=== PATIENT | male | born 1965 | race Caucasian/White ===

== ENCOUNTER → 2020-07-29 09:02 | Outpatient (CLI) | payer OTHER, SELFPAY ==
[2020-07-29 11:34] LABS: COVID19 -Nasal RAPID Negative (Negative)
== END ==
PROVIDERS: PCP Family Medicine; Visit Provider Surgery
DX: Z20.822 Contact with and (suspected) exposure to COVID-19 (principal)
CPT/HCPCS: 87635; C9803

== ENCOUNTER 2020-07-30 06:15 | Day surgery (SDC) | payer OTHER, SELFPAY ==
[2020-07-30] VITALS (7 sets, daily range): BP systolic 100–115; BP diastolic 68–76; PULSE 50–65; RESP 10–18; TEMP 36.2–36.7; O2SAT 97–99; BMI 23.6
--- NOTE | 2020-07-30 | PATH_ITS ---
[facility] Accession Number: [id number] . 01 Material submitted: . PART A: duodenum - DUODENUM BIOPSY PART B: gastrointestinal site - STOMACH BIOPSY PART C: esophagus - DISTAL ESOPHAGUS PART D: esophagus - MID ESOPHAGUS PART E: colon - 40 CM COLON POLYP X3 PART F: colon - 30 CM COLON POLYP . 02 Diagnosis: A. Duodenum, Biopsy: Duodenal mucosa with no diagnostic abnormality. Negative for active inflammation, features of sprue, dysplasia, or malignancy. . B. Stomach, Biopsy: Antral and body-type mucosa with mild chronic gastritis. Negative for Helicobacter by immunohistochemistry. Negative for intestinal metaplasia. Negative for dysplasia and malignancy. . C. Distal Esophagus, Biopsies: Squamocolumnar junctional mucosa with specialized intestinal metaplasia, consistent with Kapoor's esophagus. Up to 26 intraepithelial eosinophils per high-power field. Negative for dysplasia and malignancy. . D. Mid Esophagus, Biopsies: Squamous epithelium with increased intraepithelial eosinophils (greater than 50 per high-power field). Please see comment. Negative for dysplasia and malignancy. . E. Colon, Polyps x3, 40 cm, Biopsies: Tubular adenoma, two fragments. . F. Colon, 30 cm Polyp, Biopsy: Tubular adenoma. [facility] 08/05/2020 1414 Local . 02 Comment: C-D. In the proper clinical setting, the histopathologic appearance would support a clinical impression of eosinophilic esophagitis. The differential diagnosis includes drug reaction, gastroesophageal reflux, and food allergies. . . 02 Electronically signed: . Jocelyn Garza MD, Pathologist NPI- [id number] . 01 Gross description: . Part A: DUODENUM BIOPSY: Received in formalin are 2 fragment(s) of hyatt, soft tissue measuring 0.3 x 0.3 x 0.2 cm to 0.3 x 0.2 x 0.2 cm submitted entirely in 1 cassette(s) Part B: STOMACH BIOPSY: Received in formalin are 3 fragment(s) of hyatt, soft tissue measuring 0.5 x 0.2 x 0.1 cm to 0.2 x 0.1 x 0.1 cm submitted entirely in 1 cassette(s) Part C: DISTAL ESOPHAGUS: Received in formalin are 2 fragment(s) of hyatt, soft tissue measuring 0.5 x 0.3 x 0.2 cm to 0.3 x 0.2 x 0.2 cm submitted entirely in 1 cassette(s) Part D: MID ESOPHAGUS: Received in formalin are 2 fragment(s) of hyatt, soft tissue measuring 0.3 x 0.2 x 0.2 cm to 0.2 x 0.2 x 0.1 cm submitted entirely in 1 cassette(s) Part E: 40 CM COLON POLYP X3: Received in formalin are 2 fragment(s) of hyatt, soft tissue measuring 0.6 x 0.5 x 0.3 cm to 0.2 x 0.2 x 0.2 cm submitted entirely in 1 cassette(s) Part F: 30 CM COLON POLYP: Received in formalin are 3 fragment(s) of hyatt, soft tissue measuring 0.5 x 0.4 x 0.3 cm to 0.2 x 0.2 x 0.1 cm submitted entirely in 1 cassette(s) /IZZY 07/31/2020 0512 Local . 02 Microscopic: . A. An immunohistochemical stain was performed to evaluate cells of interest for neuroendocrine differentiation. The synaptophysin immunohistochemical stain was negative in the cells of interest, consistent with no evidence of an neuroendocrine cell proliferation. The control stain showed appropriate reactivity. . B. A Helicobacter immunohistochemical stain was performed to evaluate for Helicobacter organisms and is negative. The control stain showed appropriate reactivity. . * This test was developed and its performance characteristics determined by [facility]. It has not been cleared or approved by the U.S. Food and Drug Administration. The FDA has determined that such clearance or approval is not necessary. This test is used for clinical purposes. It should not be regarded as investigational or for research. . 02 Pathologist provided ICD-10: K20.0, D12.6 . 02 CPT . 292506, 929590, 108097, 847483, 614140, 645886, [id number] Performed at: 01 [facility] [address] [place] [address], [place], [place] [id number] MD Fidel Jacome MD Phone: [phone] Performed at: [address] [facility] [id number] [place], [place] [id number] MD Jocelyn Garza MD Phone: [phone]
[2020-07-30] MEDS: SODIUM CHLORIDE 0.9% 1,000 ML 200 ML IV (07:11)
--- NOTE | 2020-07-30 07:36 | PM.PREOP ---
Pre-operative Note COVID-19 COVID-19 status: Negative Result date/Date tested (Pos, Neg/Pending): 07/29/20 Interval Note History & Physical reviewed/Exam performed by Physician: Yes Changes to H&P: No ASA Class (for procedural sedation): II
[2020-07-30] MEDS: LIDOCAINE 4% SOLN 50 ML 20 ML TOP (07:43)
--- NOTE | 2020-07-30 07:43 | PM.OP.ENDO ---
Operative Date/Time/Diagnoses Date of procedure: 07/30/20 Time of procedure: 07:43 Pre-op diagnosis: Dysphagia, rectal bleeding Procedure & Clinicians Study performed: Esophagogastroduodenoscopy Biopsies of duodenum, stomach, distal esophagus, midesophagus Colonoscopy Polypectomy x4 using hot snare and Jumbo forceps Procedural sedation performed by the endoscopist Same procedure as scheduled: Yes Indications: Rectal bleeding, dysphagia Surgeon: Cindy Tubbs Procedure Notes SCOAP/Timeout: Performed Procedure in detail: The patient was brought to the room and placed in left lateral decubitus position with all bony prominences padded. A bite block was positioned in the patient's mouth to protect the lips, teeth, and tongue for the procedure. A time-out was performed and then the patient was given procedural sedation starting with 4 mg of Versed and 100 mcg of fentanyl. Vitals were monitored throughout the procedure and remained stable. Once adequately sedated, the procedure was begun. The lubricated gastroscope was passed through the bite block and across the tongue and into the esophagus without incident. A tubular view of the esophagus was maintained as the scope was advanced through the esophagus and into the stomach. The scope was advanced through the stomach and to the pylorus. The scope was gently popped through the pylorus and into the duodenal bulb. The scope was flexed and advanced into the second and third portions of the duodenum. The duodenum and duodenal bulb revealed some petechia, but otherwise normal. Biopsies were taken. The scope was withdrawn into the stomach. The stomach revealed some endoscopic gastritis, but no active ulcers or active bleeding. Biopsies were taken. The scope was retroflexed and the gastric cardia was examined. There was a Hill grade 2-3 hiatal hernia, with some Kimber-Anderson tears likely from retching last night while taking the bowel prep (as reported by the patient). The scope was then straightened, and withdrawn into the esophagus. The Z-line appeared normal other than the Kimber-Anderson tears. Biopsies were taken. The distal esophagus contained some superficial white slough which was biopsied. Mid esophagus had some abnormal texture, consistent with possible eosinophilic esophagitis. Biopsies were taken of the mid esophagus. The scope was then withdrawn through the esophagus with a tubular view. The scope was then withdrawn from the patient and attention was turned to the colonoscopy portion of the procedure. A rectal exam was performed revealing no abnormalities. The colonoscope was then introduced to the rectum and advanced to the cecum in the usual fashion. The cecum was identified by the appendiceal orifice, the mucosal tri-fold, and the ileocecal valve. An additional 4 mg of Versed and 50 micro g of fentanyl were given during the colonoscopy portion of the procedure. The scope was then retracted while rotating side to side and examining each mucosal fold. Three polyps were found at 40 cm. One was removed with hot snare, and 2 were removed with Jumbo forceps. An additional polyp was found at 30 cm, and was removed with hot snare. Polyps were retrieved and sent for pathology. Diverticulosis was seen in throughout the colon, most prominently in the descending and sigmoid colon. At the conclusion of the procedure retroflexion was performed and small grade 1-2 internal hemorrhoids without stigmata of bleeding were seen. The scope was then withdrawn from the rectum the procedure was concluded. The patient tolerated the procedure well and was transferred to the PACU in stable condition. A total of 8 mg of Versed and 150 micro g of fentanyl were given for the entire procedure. Findings: diverticulosis, gastritis, hiatal hernia and polyp Specimen(s): other (Biopsies of duodenum, stomach, distal esophagus, mid esophagus. Polyps x4) Complications: none Impression: Dysphagia may be secondary to esophagitis. Final determination will be based on biopsy results and barium esophagram which has been ordered and is pending to be completed. Diverticulosis, and multiple polyps which all appear to be precancerous/benign. Post-procedure Recommendations: Colonscopy in 5 years (Due to multiple polyps found on today's exam), High fiber diet (Fiber supplement) and Other recommendation (Further recommendations pending biopsy results) Follow up: as needed Disposition: PACU
[2020-07-30] MEDS: MIDAZOLAM 5 MG/5 ML VIAL IV (08:03)
[2020-07-30] MEDS: fentaNYL 250 MCG/5 ML INJ IV (08:03)
== END 2020-07-30 10:33 | disposition home or self-care (01) ==
LOC: ENDO 07-31 11:19
PROVIDERS: PCP Family Medicine; Referring Provider Surgery; Visit Provider Surgery
PROC: 0DJ08ZZ Inspection of Upper Intestinal Tract, Via Natural or Artificial Opening Endoscopic (ICD-10-PCS; CPT 43235; principal; 2020-07-30 07:45)
PROC: 0DJD8ZZ Inspection of Lower Intestinal Tract, Via Natural or Artificial Opening Endoscopic (ICD-10-PCS; CPT 45378; 2020-07-30 07:45)
DX: K62.5 Hemorrhage of anus and rectum (principal); D12.6 Benign neoplasm of colon, unspecified; K64.0 First degree hemorrhoids; R13.10 Dysphagia, unspecified; K22.70 Barrett's esophagus without dysplasia; K44.9 Diaphragmatic hernia without obstruction or gangrene; K29.50 Unspecified chronic gastritis without bleeding
CPT/HCPCS: 45385; 45380; 43239; J2250; J3010

== ENCOUNTER → 2022-07-15 13:00 | Outpatient (CLI) | payer OTHER, SELFPAY ==
--- NOTE | 2022-07-15 | DI.RAD.S_ITS ---
PROCEDURE: XR CERVICAL SPINE 2V OR 3V INDICATIONS: NECK PAIN TECHNIQUE: 3 view(s) of the cervical spine were acquired. COMPARISON: None. FINDINGS: Bones: No fractures or dislocations to the C7 level. The lateral masses of C1 appear intact on the odontoid view. No suspicious bony lesions. Moderate degenerative disc disease at C5-C6, C6-C7 and C7-T1. Mild facet arthropathy scattered in cervical spine. Soft tissues: No prevertebral soft tissue swelling. IMPRESSION: 1. Moderate degenerative disc disease in the lower cervical spine. Dictated by: Matthew Maldonado M.D. on 07/15/2022 at 13:40 Approved by: Matthew Maldonado M.D. on 07/15/2022 at 13:41
--- NOTE | 2022-07-15 | DI.RAD.S_ITS ---
PROCEDURE: XR SHOULDER LT MIN 2V INDICATIONS: SHOULDER PAIN TECHNIQUE: 3 views of the shoulder were acquired. COMPARISON: None. FINDINGS: Bones: No fractures or dislocations. No suspicious bony lesions. Mild acromioclavicular and glenohumeral joint degeneration. Visualized ribs appear intact. Soft tissues: No suspicious soft tissue calcifications. IMPRESSION: Mild osteoarthritis. Dictated by: Matthew Maldonado M.D. on 07/15/2022 at 13:41 Approved by: Matthew Maldonado M.D. on 07/15/2022 at 13:42
== END ==
PROVIDERS: PCP Family Medicine; Referring Provider Registered Nurse; Visit Provider Registered Nurse
DX: M50.322 Other cervical disc degeneration at C5-C6 level (principal); S13.4XXA Sprain of ligaments of cervical spine, initial encounter; M25.512 Pain in left shoulder; M19.012 Primary osteoarthritis, left shoulder; X58.XXXA Exposure to other specified factors, initial encounter
CPT/HCPCS: 72040; 73030

== ENCOUNTER 2024-05-09 18:40 | Emergency (ER) | payer OTHER, SELFPAY ==
[2024-05-09 18:56] VITALS: BP 105/58; PULSE 71; RESP 13; TEMP 36.7; O2SAT 95; BMI 27.3
--- NOTE | 2024-05-09 18:59 | DI.RAD.S_ITS ---
PROCEDURE: XR TIBIA FIBULA LT 2V INDICATIONS: lower leg injury TECHNIQUE: 2 views of the tibia and fibula were acquired. COMPARISON: None. FINDINGS: Bones: No fractures or dislocations. No suspicious bony lesions. Soft tissues: No suspicious soft tissue calcifications or masses. IMPRESSION: No acute bony abnormality. Dictated by: Jean Pierre Chao M.D. on 05/09/2024 at 20:09 Approved by: Jean Pierre Chao M.D. on 05/09/2024 at 20:09
[2024-05-09] MEDS: IBUPROFEN 400 MG TABLET 800 MG PO (22:03)
[2024-05-09 22:12] VITALS: BP 108/58
[2024-05-09 22:13] VITALS: PULSE 48
[2024-05-09 22:30] VITALS: BP 99/63; PULSE 61; O2SAT 97
[2024-05-09 23:00] VITALS: BP 104/60; PULSE 64; O2SAT 97
[2024-05-09 23:30] VITALS: BP 98/58; PULSE 60; O2SAT 97
[2024-05-10] VITALS: BP 109/55; PULSE 64; O2SAT 100
[2024-05-10 00:30] VITALS: BP 113/69; PULSE 71; O2SAT 99
[2024-05-10 01:00] VITALS: BP 106/60; PULSE 64; O2SAT 94
--- NOTE | 2024-05-10 01:01 | ED_ITS ---
HPI - Wound/Laceration General Chief Complaint: Wound/Laceration Stated Complaint: left muse injury Time Seen by Provider: 05/10/24 00:56 Source: patient Mode of arrival: Wheelchair History of Present Illness HPI narrative: 58-year-old gentleman history of psoriasis had a rock hit is left muse mowing the lawn. Patient was wearing jeans, rock did not penetrate the jeans. Patient had that bled immediately. It was very painful to weightbear. That has not really improved. Patient denies other injuries. No new numbness tingling or weakness. Patient tetanus is not up-to-date. states he was on any antidepressant daily. Denies any anticoagulants. No known drug allergies. Related Data Home Medications Medication Instructions Recorded Confirmed venlafaxine 37.5 mg 37.5 mg PO DAILY 07/30/20 07/30/20 capsule,extended release 24 hr Previous Rx's Medication Instructions Recorded amoxicillin 875 mg-potassium 1 tab PO BID #20 tabs 05/10/24 clavulanate 125 mg tablet hydrocodone 5 mg-acetaminophen 325 1 tab PO Q6H PRN pain #7 tabs 05/10/24 mg tablet Allergies Allergy/AdvReac Type Severity Reaction Status Date / Time No Known Drug Allergies Allergy Verified 05/09/24 18:56 Review of Systems Review of Systems ROS Unobtainable: All systems reviewed & are unremarkable except as noted in HPI and below Patient History Surgical History History of ear surgery Family History Mother Cancer Social History marital status: household members: spouse occupational status: employed Smoking Status: Unknown if ever smoked alcohol intake: current substance use type: does not use Smoking Status: Unknown if ever smoked alcohol intake frequency: 0-2 drinks per day Exam Narrative Exam Narrative: GENERAL: Alert and oriented x three, patient was initially sleeping on exam awakens easily. Mild distress HEENT: Head normocephalic, atraumatic, EOMI, pupils reactive, face symmetric, moist mucous membranes NECK: Supple, full range of motion CARDIOVASCULAR: Regular rate and rhythm without murmurs, rubs or gallops. RESPIRATORY: Breath sounds equal bilaterally, no wheezes rales or rhonchi. ABDOMEN: Soft, nontender. Normoactive bowel sounds all 4 quadrants. No guarding or rebound, rigidity, no mass EXTREMITIES: Normal range of motion, no clubbing or edema. Neurovascularly intact, patient has a puncture the left anterior calf there is a small amount of surrounding ecchymosis but no hematoma. Patient does have some overlying patchy she erythematous silvery scaled I changes on the lateral calf which patient and state or his psoriasis. NEUROLOGICAL: Cranial nerves II through XII grossly intact. Moving all extremities SKIN: Warm, dry, no petechiae, no rashes or lesions otherwise noted. Initial Vital Signs Initial Vital Signs: Vital Signs Temperature 98.1 F 05/09/24 18:56 Pulse Rate 71 05/09/24 18:56 Respiratory Rate 13 05/09/24 18:56 Blood Pressure 105/58 L 05/09/24 18:56 Pulse Oximetry 95 05/09/24 18:56 Oxygen Delivery Method Room Air 05/09/24 18:56 Course Orders Ordered: ED Orders 05/09/24 18:59 XR tibia fibula LT 2V Stat Discontinued Medications Hydrocodone Bitart/Acetaminophen (Hydrocodone/Acet 5/325 Prepack) 1 bottle MISC DIRECTED ONE Stop: 05/10/24 01:10 Last Admin: 05/10/24 01:23 Dose: 1 bottle Documented By: ROSY Diphtheria/Tetanus/Acell Pertussis (Tet,Diph,Pertuss(Acell),Vac/Pf 0.5 Ml Syringe) 0.5 ml IM .ONCE ONE Stop: 05/10/24 01:10 Last Admin: 05/10/24 01:23 Dose: 0.5 ml Documented By: ROSY Ibuprofen (Ibuprofen 400 Mg Tablet) 800 mg PO NOW ONE Stop: 05/09/24 21:59 Last Admin: 05/09/24 22:03 Dose: 800 mg Documented By: PAWAN Vital Signs Vital signs: Vital Signs - 8 hr 05/09/24 22:12 05/09/24 22:13 05/09/24 22:30 Pulse Rate 48 L 61 Blood Pressure 108/58 L Pulse Oximetry 97 05/09/24 22:30 05/09/24 23:00 05/09/24 23:00 Pulse Rate 64 Blood Pressure 99/63 104/60 Pulse Oximetry 97 05/09/24 23:30 05/09/24 23:30 05/10/24 00:00 Pulse Rate 60 Blood Pressure 98/58 L 109/55 L Pulse Oximetry 97 05/10/24 00:00 05/10/24 00:30 05/10/24 00:30 Pulse Rate 64 71 Blood Pressure 113/69 Pulse Oximetry 100 99 05/10/24 01:00 05/10/24 01:00 05/10/24 01:30 Pulse Rate 64 69 Blood Pressure 106/60 Pulse Oximetry 94 97 MDM - Wound/Laceration MDM Narrative Medical decision making narrative: Tib-fib x-ray shows no acute change. Tetanus was updated. Patient has puncture wound in his lower extremity does not require repair but was bandaged and plan for wound care at home. Patient can weightbear as tolerated with crutches if he would does not have improvement over the next week patient is to follow up in 7-10 days for repeat imaging. Discharge Plan Departure Patient Disposition: Home Clinical Impression: Puncture wound of left lower extremity Instructions: DI for Puncture Wound Activity Restrictions/Additional Instructions: Follow up for recheck if you are not able to weightbear in the next 7-10 days. You can weightbear as tolerated use crutches as needed. You can take acetaminophen and/or ibuprofen as needed for pain. If inadequate for pain you can take Keenes 1 tablet every 6 hours as needed instead of Tylenol. This medication can make you sleepy do not drive, perform hazardous activities or make any major decisions while taking it. This medication will make you constipated please take a stool softener once to twice daily until stools are soft and regular. Take antibiotics until completed. Prescription sent to [facility] in [place]. Wound Care: Keep wound(s) clean and dry. Wash daily with soap and water only. Do not use over the counter products (alcohol or peroxide)on the wounds unless instructed by a physician. Triple antibiotic ointment If wound condition worsens (increased/expanding redness, developing fluid blisters, or worsening pain), either contact your doctor for an urgent re- assessment , or return to the Emergency Department. Return if fever greater than 100.4 Fahrenheit, increased swelling, increasing pain or worsening symptoms such as increased discharge or spreading redness. Prescriptions: New hydrocodone-acetaminophen 5-325 mg tablet 1 tab PO Q6H PRN (Reason: pain) Qty: 7 0RF amoxicillin-pot clavulanate 875-125 mg tablet 1 tab PO BID Qty: 20 0RF No Action venlafaxine 37.5 mg capsule,extended release 24hr 37.5 mg PO DAILY Referrals: Jimmy Lora MD [Primary Care Provider] - Stand Alone Forms: Patient Portal/API/Survey
[2024-05-10] MEDS: TET,DIPH,PERTUSS(ACELL),VAC/PF 0.5 ML SYRINGE IM (01:23)
[2024-05-10] MEDS: HYDROCODONE/ACET 5/325 PREPACK 1 BOTTLE MISC (01:23)
[2024-05-10 01:30] VITALS: PULSE 69; O2SAT 97
== END 2024-05-10 01:38 | disposition home or self-care (01) ==
PROVIDERS: Emergency Provider Emergency Medicine; PCP Family Medicine
DX: S81.832A Puncture wound without foreign body, left lower leg, initial encounter (principal); W22.8XXA Striking against or struck by other objects, initial encounter; Z23 Encounter for immunization
CPT/HCPCS: 73590; 90471; 99283; 99284; 90715

== ENCOUNTER → 2024-05-30 19:38 | Outpatient (CLI) | payer OTHER, SELFPAY ==
--- NOTE | 2024-05-30 19:41 | DI.MRI.S_ITS ---
PROCEDURE: MR LOWER LEG LT WO/W CON INDICATIONS: non healing wound of LT LE TECHNIQUE: Noncontrast coronal T1 spin echo and STIR, sagittal T1 spin echo with fat saturation and STIR, axial T1 spin echo and T2 fast spin echo with fat saturation. After the administration of contrast, axial/sagittal/coronal T1 spin echo with fat saturation through the left lower leg. COMPARISON: None. FINDINGS: Image quality: Excellent. Bones: Extensive marrow edema and enhancement involving proximal to mid tibial shaft is seen with significant surrounding periosteal reaction. No obvious cortical erosion is seen. No fracture or dislocation. No other area of abnormal marrow signal. Soft tissues: There is significant soft tissue edema and swelling along anterior and medial aspect of left lower leg extending from the level of left knee to left ankle . No discrete peripherally enhancing drainable fluid collection is noted. Soft tissue edema and swelling is also noted surrounding proximal to mid tibial shaft. There is edema involving deep portion of the extensor and flexor muscles adjacent to proximal to mid tibial shaft. Edema is also noted involving anterior medial aspect of proximal soleus muscle. No discrete intramuscular peripherally enhancing fluid collection is seen. No enhancing soft tissue mass is seen. IMPRESSION: 1. Extensive cellulitis along anterior and medial aspect of left lower leg as above, no evidence of discrete drainable abscess collection. 2. Suggestion of osteomyelitis involving left proximal to mid tibial shaft with marrow edema, contrast enhancement and surrounding periosteal reaction. No bony erosion or pathologic fracture. 3. Suggestion of myositis involving muscles immediately adjacent to proximal to mid tibial shaft as above. No intramuscular abscess collection. Dictated by: Robret Golden M.D. on 05/31/2024 at 11:15 Approved by: Robetr Golden M.D. on 05/31/2024 at 11:22
== END ==
PROVIDERS: PCP Family Medicine; Referring Provider Family Medicine; Visit Provider Family Medicine
DX: S81.802A Unspecified open wound, left lower leg, initial encounter (principal); L03.116 Cellulitis of left lower limb; R60.0 Localized edema; M79.605 Pain in left leg
CPT/HCPCS: 73720; A9579

== ENCOUNTER 2024-06-03 11:15 | Inpatient (IN) | payer OTHER, SELFPAY ==
[2024-06-03 11:55] VITALS: BMI 26.2
--- NOTE | 2024-06-03 13:19 | PM.HP.1 ---
History of Present Illness History of Present Illness Date Patient Seen: 06/03/24 Time Patient Seen: 13:19 Date of Onset of Symptoms: 05/07/24 Chief complaint: PIC LINE Narrative: Patient is a 58-year-old male who I know well who presents with left muse osteomyelitis and cellulitis. Patient approximately 3 weeks ago was mowing his lawn got hit by a rock that came out from under in the middle of his muse had immediate pain. Had x-ray which did not show any fracture. Patient had a open wound which has not really healed. He continues to get worsening pain he was started on Bactrim and culture was obtained which was negative for definitive diagnosis. Got no improvement with a full course of Bactrim and then was switched to Augmentin. He really never had any erythema or other changes but increasing pain. MRI was obtained which shows cellulitis basically the entire muse and probable osteomyelitis of the central tibia. Patient has had no fevers no chills no night sweats no other change. Otherwise feeling well [facility] Surgical History History of ear surgery Family History Mother Cancer Social History marital status: household members: spouse occupational status: employed Smoking Status: Never smoker alcohol intake: current substance use type: does not use Meds Home Medications and Allergies Home Medications Medication Instructions Recorded Confirmed Type buspirone 30 mg tablet 30 mg PO BID 06/03/24 06/03/24 History gabapentin 300 mg capsule 300 mg PO 3XD 06/03/24 06/03/24 History hydrocodone 5 mg-acetaminophen 325 1 tab PO Q6H PRN moderate pain 06/03/24 06/03/24 History mg tablet omeprazole 40 mg capsule,delayed 40 mg PO DAILY 06/03/24 06/03/24 History release venlafaxine 75 mg capsule,extended 75 mg PO 3XD 06/03/24 06/03/24 History release 24 hr Allergies Allergy/AdvReac Type Severity Reaction Status Date / Time No Known Drug Allergies Allergy Verified 05/09/24 18:56 Review of Systems Review of Systems Narrative: Negative except above Exam Vital Signs (past 8 hours): Alert male in no acute distress HEENT exam mucous membranes moist neck supple without adenopathy lungs are clear heart is regular rate and rhythm abdomen is soft positive bowel sounds nontender left muse shows an open 4 mm wound with no drainage. He is some slight erythema around that but is quite tender along the entire tibia. There was no swelling no evidence of any abscess or other changes. Good pulses. Right leg is normal neurologic exam is unremarkable Assessment & Plan Assessment & Plan narrative: Cellulitis with probably osteomyelitis mid tibia. Culture previously was negative but will re-culture today. Will get CBC sed rate CRP. Will begin on vanco after discussion with pharmacy. Will consult Wound Care to see what they would recommend with nonhealing wound connected probably to the bone. Will cover for MRSA at this time and will hopefully get some direction with culture. Patient is probably going to need long-term treatment so will add PICC line. If there is any question will discuss with Infectious Disease. Maybe ortho for debridement will see what wound care thinks. Discussed with the patient he understands Problem 2. Depression. Stable. We started his usual meds. 55 minutes spent with the patient imaging review of information discussion with pharmacy dictation orders Time-Based Coding :: [TOTAL MINUTES] spent with patient and on the chart (including review of chart, obtaining history, exam, reviewing outside data, placing orders, documenting exam and treatment plan, and counseling patient) on [DATE]. Quality VTE Deep Vein Thrombosis/Pulmonary Embolism Present on Admission: No
[2024-06-03 13:41] LABS: Estimated Glomerular Filt Rate > 60 mL/min (>60)
[2024-06-03 13:45] LABS: C-Reactive Protein Quant < 0.5 mg/dL (<1.0)
[2024-06-03 14:00] VITALS: BP 111/68; PULSE 60; RESP 15; TEMP 36.4; O2SAT 96
[2024-06-03 14:13] LABS: Add Manual Diff / Slide Review NO; Basophils Absolute Auto 100 /uL (0-100); Basophils Percent Auto 0.9 % (0-2); Eosinophils Absolute Auto 200 /uL (0-450); Eosinophils Percent Auto 3.1 % (2-4); Hematocrit 37.4 % (41-53); Hemoglobin 12.5 g/dL (13.5-17.5); Lymphocytes Absolute Auto 1700 /uL (1100-4500); Lymphocytes Percent Auto 25.5 % (25-40); Mean Corpuscular HGB Conc 33.5 % (30-36); Mean Corpuscular Hemoglobin 31.6 PG (26-34); Mean Corpuscular Volume 94.1 fL (80-100); Monocytes Absolute Auto 500 /uL (0-900); Monocytes Percent Auto 7.4 % (3-14); Neutrophils Absolute Auto 4200 /uL (1500-7000); Neutrophils Percent Auto 63.1 % (50-75); Platelet Count 323 X10^3/uL (150-400); Red Blood Cell Count 3.97 X10^6/uL (4.5-5.9); Red Cell Distribution Width 13.1 % (11.6-14.8); White Blood Cell Count 6.6 X10^3/uL (4.5-11.0)
[2024-06-03 14:31] LABS: Erythrocyte Sedimentation Rate 13 MM/HR (0-15)
[2024-06-03] MEDS: GABAPENTIN 300 MG CAPSULE PO ×2 (15:21→20:57)
[2024-06-03] MEDS: OXYCODONE IR 5 MG TABLET PO ×2 (15:21→21:02)
[2024-06-03] MEDS: VENLAFAXINE ER 75 MG CAP PO ×2 (15:21→20:57)
--- NOTE | 2024-06-03 16:52 | DI.RAD.S_ITS ---
PROCEDURE: XR CHEST FOR PICC 1V INDICATIONS: PICC line placement COMPARISON: None. FINDINGS: PICC was placed by the intravenous therapy team from the left side. Fluoroscopic spot film demonstrates the tip of PICC projecting to the area of SVC. IMPRESSION: Tip of PICC projects to the area of SVC. Dictated by: Robert Golden M.D. on 06/03/2024 at 17:17 Approved by: Robert Golden M.D. on 06/03/2024 at 17:18
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
[2024-06-03] MEDS: VANCOMYCIN 1,250 MG/250 ML PIGGYBACK 250 MG IV (17:28)
[2024-06-03 18:00] VITALS: BP 118/65; PULSE 72; RESP 18; TEMP 36.6; O2SAT 96
[2024-06-03 19:00] VITALS: O2SAT 96
[2024-06-03 20:00] VITALS: BP 123/71; PULSE 68; RESP 17; TEMP 36.6; O2SAT 96
[2024-06-03] MEDS: BUSPIRONE 5 MG TABLET 30 MG PO (20:57)
[2024-06-04] VITALS (8 sets, daily range): BP systolic 110–129; BP diastolic 70–83; PULSE 56–65; RESP 16–21; TEMP 35.9–36.3; O2SAT 95–97
[2024-06-04] MEDS: VANCOMYCIN 1,250 MG/250 ML PIGGYBACK 250 MG IV ×3 (01:46→17:56)
[2024-06-04 05:14] LABS: Add Manual Diff / Slide Review NO; Basophils Absolute Auto 100 /uL (0-100); Basophils Percent Auto 1.4 % (0-2); Eosinophils Absolute Auto 300 /uL (0-450); Eosinophils Percent Auto 5.7 % (2-4); Hematocrit 35.1 % (41-53); Lymphocytes Absolute Auto 2100 /uL (1100-4500); Lymphocytes Percent Auto 48.1 % (25-40); Mean Corpuscular HGB Conc 34.3 % (30-36); Mean Corpuscular Volume 93.3 fL (80-100); Monocytes Absolute Auto 300 /uL (0-900); Monocytes Percent Auto 7.6 % (3-14); Neutrophils Absolute Auto 1700 /uL (1500-7000); Neutrophils Percent Auto 37.2 % (50-75); Platelet Count 277 X10^3/uL (150-400); Red Blood Cell Count 3.76 X10^6/uL (4.5-5.9); Red Cell Distribution Width 12.6 % (11.6-14.8); White Blood Cell Count 4.5 X10^3/uL (4.5-11.0)
[2024-06-04] MEDS: PANTOPRAZOLE DR 40 MG TABLET PO (06:27)
--- NOTE | 2024-06-04 07:57 | P.PN_ITS ---
Subjective Subjective Date Patient Seen: 06/04/24 Time Patient Seen: 07:58 Interval history: Patient seen in follow-up osteomyelitis and cellulitis of the left leg. Patient feeling maybe slightly better today hard to tell. Does not feel a lot different. No fevers no chills no other change. Appreciate wound care. Exam Vital Signs (past 8 hours): - 06/04/24 00:00 06/04/24 04:00 Temperature 97.2 F L 97.2 F L Pulse Rate 56 L 58 L Respiratory Rate 17 17 Blood Pressure 114/79 119/76 Pulse Oximetry 96 96 Oxygen Flow Rate 0 0 Oxygen Delivery Method Room Air Oxygen Flow Rate 0 Narrative Exam Narrative: Alert male in no acute distress lying in bed. Lungs are clear heart is regular rate and rhythm left leg shows maybe some slight decreased erythema certainly less tender inferior to the wound wound shows no difference although it is covered today with wound care dressing. Objective Labs 06/04/24 04:44 06/03/24 13:20 Labs: Laboratory Results - last 24 hr 06/03/24 06/03/24 06/04/24 13:20 13:33 04:44 WBC 6.6 4.5 RBC 3.97 L 3.76 L Hgb 12.5 L 12.0 L Hct 37.4 L 35.1 L MCV 94.1 93.3 MCH 31.6 32.0 MCHC 33.5 34.3 RDW 13.1 12.6 Plt Count 323 277 Neut % (Auto) 63.1 37.2 L D Lymph % (Auto) 25.5 48.1 H [place] % (Auto) 7.4 7.6 Eos % (Auto) 3.1 5.7 H Baso % (Auto) 0.9 1.4 Neut # (Auto) 4200 1700 Lymph # (Auto) 1700 2100 [place] # (Auto) 500 300 Eos # (Auto) 200 300 Baso # (Auto) 100 100 ESR 13 Creatinine 0.82 Estimated GFR > 60 Magnesium 2.0 C-Reactive Protein < 0.5 PFSH Surgical History History of ear surgery Family History Mother Cancer Social History marital status: household members: spouse occupational status: employed Smoking Status: Never smoker alcohol intake: current substance use type: does not use Assessment & Plan Assessment & Plan narrative: Cellulitis/osteomyelitis mid tibia. Appreciate wound care. Reviewed culture from outpatient and was staph aureus non MRSA sensitive to everything. Will see what grows. Will continue on vanco till we have a culture. Then hopefully we can switch to less broad coverage and something that will be good as an outpatient will try to discuss with Infectious Disease today. See what their recommendations are. Will need 6 weeks at least of outpatient therapy. Will difficult to follow secondary to no white count or fever. But certainly pain is less today. Will discuss with social Service for setting up outpatient IV therapy. I do not think it needs debridement. No evidence of abscess. Problem 2. Anxiety/depression. Stable. History of reflux continue PPI. Code status full. DVT prophylaxis on Lovenox. Disposition. Hope in the next 48 hours can get home on IV antibiotics. Time-Based Coding :: [TOTAL MINUTES] spent with patient and on the chart (including review of chart, obtaining history, exam, reviewing outside data, placing orders, documenting exam and treatment plan, and counseling patient) on [DATE]. Quality VTE Deep Vein Thrombosis/Pulmonary Embolism Present on Admission: No
[2024-06-04] MEDS: ENOXAPARIN 40 MG/0.4 ML SYRINGE SUBCUT (09:56)
[2024-06-04] MEDS: BUSPIRONE 5 MG TABLET 30 MG PO ×2 (09:57→20:35)
[2024-06-04] MEDS: FOLIC ACID 1 MG TABLET PO (09:57)
[2024-06-04] MEDS: GABAPENTIN 300 MG CAPSULE PO ×3 (09:57→20:35)
[2024-06-04] MEDS: VENLAFAXINE ER 75 MG CAP PO ×2 (09:58→16:45)
[2024-06-04] MEDS: MULTIVITAMIN 1 TABLET 1 TAB PO (09:58)
[2024-06-04] MEDS: THIAMINE 100 MG TABLET PO (09:58)
--- NOTE | 2024-06-04 10:56 | DIET.CONS ---
Dietary Consultation Note Admission Date: 06/03/2024 11:15 Assessment: 58 y M admitted for for treatment of osteomyelitis. Dietitian consulted for wound. Pt was sleeping at visit, family member at bedside. Reports pt has normal appetite, eat 3 meals plus snacks as needed, with good variety of foods and includes multiple protein sources throughout day (i.e chx, fish, beef, eggs, dairy) No recent weight loss. Pt remained asleep throughout visit. Ht: 177.8 cm Wt: 86 kg BMI: 26.2 UBW: 81.647 kg on 05/09/24 Last BM: 06/02/24 (06/03/24 11:55) MNA: 12 Hernan Score: 21 Diet: 06/03/24 Dinner General (Regular) Diet Diet Modifications: Nutrition Percent Meal Consumed 100% 06/03/24 18:00 Labs: RBC 3.76 X10^6/uL (4.5-5.9) L 06/04/24 04:44 Hgb 12.0 g/dL (13.5-17.5) L 06/04/24 04:44 Hct 35.1 % (41-53) L 06/04/24 04:44 Creatinine 0.82 mg/dL (0.66-1.25) 06/03/24 13:20 Nutrition Diagnosis: Increased nutrient needs (protein) r/t healing needs aeb wound Interventions: -Discussed nutrients that support healing including continued adequate protein and vitamin and minerals and provided handout on what foods to find these nutrients in -Will provide Jf while in hospital EER: 90 g protein (1.25 g/kg adjusted IBW) Monitoring/Evaluations: jf tolerance, po intakes Electronically Signed by: Marisol Hamilton 06/04/24 10:56 Clinical Dietitian [address] [id number]
--- NOTE | 2024-06-04 12:18 | CM.DANOTE ---
DCP Assessment Note pt is a 58yo M Admitted with osteomyelitis and cellulitis of the left leg. PCP Dr. Lora Payer Jose and self pay FINANCIAL SERVICE REPRESENTATIVE reviewed EMR per Dr. Lora, pt will need 6 weeks of IV abx therapy, specific med pending. plans to consult ID provider today. already has PICC line. FINANCIAL SERVICE REPRESENTATIVE entered room and introduced self and role. pt resting in bed accompanied by partner Jocelyn [phone]. pt indep, works at the [employer], and is eager to go home. pt preference is OP wound care here at and home infusion with [facility]. asked if he would be able to work while getting IV abx. FINANCIAL SERVICE REPRESENTATIVE directed pt to Dr. Lora on what his recommendation would be. Asked for FMLA paperwork. pt will check if he needs work letter as well to send to employer, provider recs for work pending. Deny other needs/questions at this time. FINANCIAL SERVICE REPRESENTATIVE spoke with Fiona from OP wound care, they will get started on [employer] [facility] auth/referral for pt to return to OP clinic for f/u appts. FINANCIAL SERVICE REPRESENTATIVE spoke with Ron from [facility]. happy to review. FINANCIAL SERVICE REPRESENTATIVE faxed current referral information (p [phone] f [phone]). NEED the final med rec before submitting for ins auth/the following provider. Ron reports [employer] tends to have full coverage for home infusions. FINANCIAL SERVICE REPRESENTATIVE printed/completed [facility] paperwork and walked it over to [facility] physicians, Dr. Lora agreed to sign. Dr. Lora's electrician front staff report they will fax in the form once Guido signs and then will upload a copy to pt's chart for his records. FINANCIAL SERVICE REPRESENTATIVE updated pt/partner on FMLA paperwork status, pt and partner appreciative. PLAN: return home with partner support, OP wound care at (NEED [facility] auth, OP clinic working on getting) and [facility] (NEED final med rec to submit for yan auth). CM team will continue to follow closely for DCP coordination RAMSEY Mcpherson Discharge Planning/Care Management CM Discharge Assessment Start: 06/04/24 12:16 Freq: Status: Active Protocol: Document 06/04/24 12:16 SL (Rec: 06/04/24 12:18 SL Desktop) Discharge Planning Assessment Assigned Financial Advisor Trainee RAMSEY Foster DPOA/Assigned Designee Name vicki Banks other Contact Information [phone] Advance Directives? No Advance Directives on File No History Provided By Patient,Medical Record Prior Living Arrangements Mobile home Household Members spouse Type of transporation used prior to Drives own vehicle admit Independent with ADL's Yes Is patient alert and oriented? Yes Discharge Plan Home Community Services IV Therapy,Wound Care Transportation Arrangement family in POV Referrals Initiated Other Additional Comment OP wound care reviewing, submitting for auth. [facility] reviewing, need final med rec to submit for yan auth Whiteboard Updated in Patient Room with Yes name and ext. # of Financial Advisor Trainee Review Status In Process Please Provide Date Initial DC 06/04/24 Assessment Was Performed Next Review Type Continued Stay Review
[2024-06-04] MEDS: OXYCODONE IR 5 MG TABLET PO ×2 (17:59→20:41)
--- NOTE | 2024-06-04 18:43 | PC.NURSE ---
Wound/Pain: Minimal pain until late this afternoon, he had been up on his feet more than usual and did decide to take something for pain. Wound to lt lower leg - unable to pack as it was to shallow. Area cleansed and new 2x2 was applied.
[2024-06-04] MEDS: CEFAZOLIN 2 GM/100 ML PREMIX 100 ML IV (19:16)
[2024-06-04 20:38] LABS: Vancomycin Peak 32.9 ug/mL (20-40)
[2024-06-04] MEDS: VANCOMYCIN PEAK 1 REQUEST MISC (21:27)
[2024-06-05] MEDS: CEFAZOLIN 2 GM/100 ML PREMIX 100 ML IV ×3 (01:01→16:42)
[2024-06-05 01:04] VITALS: BP 116/75; PULSE 65; RESP 16; TEMP 36.3; O2SAT 99
[2024-06-05] MEDS: VANCOMYCIN 1,250 MG/250 ML PIGGYBACK 250 MG IV ×3 (01:45→17:29)
[2024-06-05 05:10] VITALS: BP 139/83; PULSE 68; RESP 16; TEMP 36; O2SAT 94
[2024-06-05] MEDS: PANTOPRAZOLE DR 40 MG TABLET PO (05:40)
[2024-06-05] MEDS: SODIUM CHLORIDE 0.9% FLUSH 10 ML IV ×2 (05:42→08:45)
[2024-06-05 06:38] LABS: Alanine Aminotransferase 29 IU/L (<50); Albumin 3.7 g/dL (3.5-5.0); Albumin Globulin Ratio 1.4 (1.0-2.8); Alkaline Phosphatase 107 U/L (38-126); Aspartate Aminotransferase 31 IU/L (17-59); BUN Creatinine Ratio 19.5 (6-22); Bilirubin Total 0.2 mg/dL (0.2-1.3); Blood Urea Nitrogen 17 mg/dL (9-20); Calcium 8.8 mg/dL (8.4-10.2); Carbon Dioxide 28 mmol/L (22-32); Chloride 106 mmol/L (98-107); Estimated Glomerular Filt Rate > 60 mL/min (>60); Globulin 2.6 g/dL (1.7-4.1); Glucose 97 mg/dL (70-99); HEMOLYSIS 15 (0-50); Potassium 4.2 mmol/L (3.4-5.1); Sodium 139 mmol/L (137-145); Total Protein 6.3 g/dL (6.3-8.2)
[2024-06-05 08:00] VITALS: BP 114/70; PULSE 60; RESP 14; TEMP 36.6; O2SAT 97
[2024-06-05] MEDS: BUSPIRONE 5 MG TABLET 30 MG PO ×2 (08:43→21:58)
[2024-06-05] MEDS: GABAPENTIN 300 MG CAPSULE PO ×3 (08:43→21:58)
[2024-06-05] MEDS: ENOXAPARIN 40 MG/0.4 ML SYRINGE SUBCUT (08:43)
[2024-06-05] MEDS: MULTIVITAMIN 1 TABLET 1 TAB PO (08:44)
[2024-06-05] MEDS: THIAMINE 100 MG TABLET PO (08:44)
[2024-06-05] MEDS: VENLAFAXINE ER 75 MG CAP 225 MG PO (08:44)
[2024-06-05] MEDS: FOLIC ACID 1 MG TABLET PO (08:44)
[2024-06-05 12:00] VITALS: BP 124/77; PULSE 57; RESP 16; TEMP 36.2; O2SAT 97
--- NOTE | 2024-06-05 13:03 | PM.PN.1 ---
Subjective Subjective Date Patient Seen: 06/05/24 Time Patient Seen: 13:04 Interval history: Patient seen in follow-up osteomyelitis. Overall feeling about the same. Still hurts to walk on. No other change. Dressing is being changed daily Exam Vital Signs (past 8 hours): - 06/05/24 05:10 06/05/24 08:00 06/05/24 08:00 Temperature 96.8 F L 98 F Pulse Rate 68 60 Respiratory Rate 16 14 Blood Pressure 139/83 114/70 Pulse Oximetry 94 97 97 Oxygen Delivery Method Room Air Oxygen Flow Rate 0 06/05/24 12:00 Temperature 97.2 F L Pulse Rate 57 L Respiratory Rate 16 Blood Pressure 124/77 Pulse Oximetry 97 Oxygen Delivery Method Oxygen Flow Rate 0 Oxygen Delivery Method Room Air Oxygen Flow Rate 0 Narrative Exam Narrative: alert male in no acute distress Left muse with decreased erythema. Had significant decrease in pain. His muse is pretty nontender today. Objective Labs 06/04/24 04:44 06/05/24 05:55 Labs: Laboratory Results - last 24 hr 06/04/24 06/04/24 06/05/24 17:34 20:00 05:55 Sodium 139 Potassium 4.2 Chloride 106 Carbon Dioxide 28 BUN 17 Creatinine 0.87 Estimated GFR > 60 BUN/Creatinine Ratio 19.5 Glucose 97 Calcium 8.8 Total Bilirubin 0.2 AST 31 ALT 29 Alkaline Phosphatase 107 Total Protein 6.3 Albumin 3.7 Globulin 2.6 Albumin/Globulin Ratio 1.4 Vancomycin Peak 32.9 Vancomycin Trough 15.0 PFSH Surgical History History of ear surgery Family History Mother Cancer Social History marital status: household members: spouse occupational status: employed Smoking Status: Never smoker alcohol intake: current substance use type: does not use Assessment & Plan Assessment & Plan narrative: Osteomyelitis/ cellulitis left leg. Patient clinically is improved although still having quite a bit of pain to walk on it. Cultures are negative today. Will give 1 more day on current therapy and then make decision tomorrow. Discussed with ID. They will take over as outpatient. Will do referral today. She recommended cefazolin and vanco. If no positive culture tomorrow would use our previous culture to guide therapy which was pretty pansensitive. Hoping we can use something like Rocephin. Family does have history of doing IV outpatient therapy. Which works for us. Lab work looks good. He has no other changes and will follow. History of alcohol drinking no evidence of withdrawal will continue to follow. Depression/ anxiety doing well. Code status full. DVT prophylaxis on Lovenox Disposition. Hoping tomorrow maybe home with IV antibiotics. Follow-up with wound care. Will need outpatient dressings for home dressings and education. Time-Based Coding :: [TOTAL MINUTES] spent with patient and on the chart (including review of chart, obtaining history, exam, reviewing outside data, placing orders, documenting exam and treatment plan, and counseling patient) on [DATE]. Quality VTE Deep Vein Thrombosis/Pulmonary Embolism Present on Admission: No
[2024-06-05 16:00] VITALS: BP 118/73; PULSE 65; RESP 18; TEMP 36.3; O2SAT 99
[2024-06-05 20:00] VITALS: BP 126/78; PULSE 66; RESP 16; TEMP 36.3; O2SAT 95
[2024-06-06] VITALS: BP 127/76; PULSE 68; RESP 16; TEMP 36.4; O2SAT 97
[2024-06-06] MEDS: CEFAZOLIN 2 GM/100 ML PREMIX 100 ML IV ×2 (01:05→09:34)
[2024-06-06] MEDS: VANCOMYCIN 1,250 MG/250 ML PIGGYBACK 250 MG IV ×2 (02:03→10:49)
[2024-06-06 04:00] VITALS: BP 128/76; PULSE 60; RESP 16; TEMP 36.4; O2SAT 97
[2024-06-06] MEDS: PANTOPRAZOLE DR 40 MG TABLET PO (06:35)
[2024-06-06 07:31] LABS: Alanine Aminotransferase 29 IU/L (<50); Albumin Globulin Ratio 1.5 (1.0-2.8); Alkaline Phosphatase 116 U/L (38-126); Aspartate Aminotransferase 34 IU/L (17-59); BUN Creatinine Ratio 23.5 (6-22); Bilirubin Total 0.5 mg/dL (0.2-1.3); Blood Urea Nitrogen 19 mg/dL (9-20); Carbon Dioxide 25 mmol/L (22-32); Chloride 106 mmol/L (98-107); Estimated Glomerular Filt Rate > 60 mL/min (>60); Globulin 2.7 g/dL (1.7-4.1); Glucose 109 mg/dL (70-99); HEMOLYSIS < 15 (0-50); Potassium 4.1 mmol/L (3.4-5.1); Sodium 139 mmol/L (137-145); Total Protein 6.7 g/dL (6.3-8.2)
[2024-06-06 08:00] VITALS: BP 123/70; PULSE 71; RESP 21; TEMP 36.2; O2SAT 96
[2024-06-06] MEDS: VENLAFAXINE ER 75 MG CAP 225 MG PO (09:33)
[2024-06-06] MEDS: MULTIVITAMIN 1 TABLET 1 TAB PO (09:33)
[2024-06-06] MEDS: FOLIC ACID 1 MG TABLET PO (09:34)
[2024-06-06] MEDS: ENOXAPARIN 40 MG/0.4 ML SYRINGE SUBCUT (09:34)
[2024-06-06] MEDS: SODIUM CHLORIDE 0.9% FLUSH 10 ML IV (09:34)
[2024-06-06] MEDS: THIAMINE 100 MG TABLET PO (09:34)
[2024-06-06] MEDS: BUSPIRONE 5 MG TABLET 30 MG PO (09:34)
[2024-06-06 12:06] VITALS: BP 116/75; PULSE 69; RESP 18; TEMP 36.2; O2SAT 98
--- NOTE | 2024-06-06 14:02 | PM.DS.1 ---
History of Present Illness History of Present Illness Date Patient Seen: 06/06/24 Time Patient Seen: 08:40 Chief complaint: PIC LINE Narrative: CC: osteomyelitis Feeling ok today leg pain improved since coming in but still hurts to bear weight wound looks ok under soft dressing appetite and sleep all good plan today is to d/c and f/up with Dr. Grover GREENE and also with [facility] for 6 weeks of abx. Discharge Providers Provider Date of admission: 06/03/24 11:15 Discharge Date: 06/06/24 Primary care physician: Jimmy Lora MD Consults: 06/03/24 12:42 Consult to [facility] - Director Of Strategy & Mobile Routine Comment: may need out pt abx Director Of Strategy & Mobile Consult needed for:: Other reason (Comment) 06/03/24 13:14 Consult to Dietitian, Adult Urgent Comment: Reason For Exam: open wound left leg 06/03/24 13:17 Consult to Wound Care Routine Comment: Consulting Provider: Haylee- Wound Care Discharge provider: Suleman Rodas MD Summary Hospital Course Discharge Diagnosis: #Osteomyelitis L anterior tibia Hospital Course: Pt presented to ED after failure of outpt oral antibiotics for cellulitis around penetrating wound to L muse from bit of gravel while moving lawn 3 weeks prior. outpt cultures grew pansensitive staphb ut inpatient cultures did not grow anything definitive. Cellulitis improved with iv vanc and cefaz however due to risk for osteomyelitis and continued pain with bearing weight it was decided to treat as osteomyelitis with 6 weeks of outpatient antibiotics. He will be set up with [facility], f/up with us and ID, and come in for lab draws regularly as noted in A&P. Status at Discharge Cognitive/behavioral status at discharge: at baseline, oriented Functional status at discharge: independent ambulation Overall status at discharge: patient is progressing back to baseline Exam Vital Signs (past 8 hours): - 06/06/24 08:00 06/06/24 12:06 Temperature 97.2 F L 97.2 F L Pulse Rate 71 69 Respiratory Rate 21 18 Blood Pressure 123/70 116/75 Pulse Oximetry 96 98 Oxygen Delivery Method Room Air Oxygen Flow Rate 0 Narrative Exam Narrative: alert sitting in bed wearing street clothes Const Other: well nourished well developed Resp Other: clear to auscultation bilaterally Cardio Other: regular rate and rhythm, s1/s2 well perfused GI Other: soft nontender active bowel sounds Neuro Other: alert awake oriented moving all limbs Extrem Other: L anterior muse with small ~1cm wide penetrating wound covered with soft dressing - no surrounding skin changes drainage bleeding or exudate. Objective Labs 06/04/24 04:44 06/06/24 06:55 Labs: Laboratory Results - last 24 hr 06/06/24 06:55 Sodium 139 Potassium 4.1 Chloride 106 Carbon Dioxide 25 BUN 19 Creatinine 0.81 Estimated GFR > 60 BUN/Creatinine Ratio 23.5 H Glucose 109 H Calcium 9.0 Total Bilirubin 0.5 AST 34 ALT 29 Alkaline Phosphatase 116 Total Protein 6.7 Albumin 4.0 Globulin 2.7 Albumin/Globulin Ratio 1.5 PFSH Surgical History History of ear surgery Family History Mother Cancer Social History marital status: household members: spouse occupational status: employed Smoking Status: Never smoker alcohol intake: current substance use type: does not use Discharge Assessment & Plan Assessment and Plan Assessment: #Osteomyelitis s/p penetrating injury from bit of gravel while mowing lawn. Improved on abx vanc and cef - however ED cultures never grew anything specific so all we have to go on is a clinic culture which grew pansensitive staph. discussed options with Dr. Ness appreciate her input will be f/up as outpt with her office - she agrees plan of cefazolin 2g IV q8h is good with CRP/CBC/CMP lab draws at our office or at home every Monday and faxed to her office at [phone]. We will arrange this via Ron Macedo at [facility]. Will plan on f/up w our office as well as Dr. Ness's. I did underscore to patient the importance of not drinking while he is getting IV Cefazolin and he verbalized understanding and agreement. dispo: home to f/up wt [facility] Code: Full diet: general PCP: [facility] Discharge Plan Discharge Plan Patient Disposition: Home Health Service Transfer to: [facility] Provider Discharge Comment: to complete 6 weeks iv abx and f/up with ID as outpt Discharge orders & Medications Prescriptions: Continued venlafaxine 75 mg capsule,extended release 24hr 75 mg PO 3XD hydrocodone-acetaminophen 5-325 mg tablet 1 tab PO Q6H PRN (Reason: moderate pain) omeprazole 40 mg capsule,delayed release(DR/EC) 40 mg PO DAILY buspirone 30 mg tablet 30 mg PO BID gabapentin 300 mg capsule 300 mg PO 3XD Follow up/Referrals: Jimmy Lora MD [Primary Care Provider] - Visit Report/Discharge Packet Stand Alone Forms: Patient Portal/API, Stroke Signs & Symptoms Discharge Data Primary Care Provider: Jimmy Lora Quality VTE Deep Vein Thrombosis/Pulmonary Embolism Present on Admission: No
--- NOTE | 2024-06-07 08:30 | CM.DPNOTE ---
Addendum entered by RAMSEY Kay 06/07/24 10:26: ADD: TC from Marianne, pharmacist at [facility]. Patient did miss 1-2 doses of IV cefazolin, he will be seen by an [facility] RN this afternoon around 3pm. Updated Dr Rodas. Original Note: Post Discharge Note This TARIFF CLERK left early 06/06/24, approx 1230, for low census before antibiotic treatment plan had bee defined. Before leaving, coordinated the beginning of discharge efforts with Ron at [facility], Dr Rodas and patient. Patient covered for home infusion 100% with his [employer] coverage. All were in agreement for patient's return home with [facility] to provide ongoing IV abx, and close outpatient follow up with Dr Lora and Dr Ness, ID at [facility]. Patient discharged on: cefazolin 2g IV q8h with CRP/CBC/CMP lab draws at Dr Lora's office or at home every Monday and faxed to Dr Ness's office at [phone]. Patient discharged yesterday as provider made arrangements with patient, Dr Ness and [email or web address] for outpatient plan. ALDEN
== END 2024-06-06 17:03 | disposition home health service (06) | DRG 540 ==
PROVIDERS: Admitting Provider Family Medicine; PCP Family Medicine; Referring Provider Family Medicine; Visit Provider Family Medicine
DX: M86.9 Osteomyelitis, unspecified (principal); L03.116 Cellulitis of left lower limb; S81.832D Puncture wound without foreign body, left lower leg, subsequent encounter; W20.8XXD Other cause of strike by thrown, projected or falling object, subsequent encounter; F41.9 Anxiety disorder, unspecified; F32.A Depression, unspecified; K21.9 Gastro-esophageal reflux disease without esophagitis
CPT/HCPCS: 36415; 36569; 36592; 80053; 80202; 82565; 83735; 85025; 85651; 86140; 87070; 87075; 87205; 99232; J0690; J1642; J1650

== ENCOUNTER → 2024-06-13 08:45 | Outpatient (CLI) | payer OTHER, SELFPAY ==
[2024-06-03 11:55] VITALS: BMI 26.2
== END ==
LOC: WC 08:47
PROVIDERS: Family Provider Family Medicine; PCP Family Medicine; Referring Provider Family Medicine; Visit Provider Surgery
DX: L98.8 Other specified disorders of the skin and subcutaneous tissue (principal); S81.802A Unspecified open wound, left lower leg, initial encounter; M86.162 Other acute osteomyelitis, left tibia and fibula; R60.0 Localized edema; Z79.899 Other long term (current) drug therapy
CPT/HCPCS: 11042; 99213

== ENCOUNTER → 2024-06-20 08:46 | Outpatient (CLI) | payer OTHER, SELFPAY ==
[2024-06-03 11:55] VITALS: BMI 26.2
== END ==
LOC: WC 08:47
PROVIDERS: Family Provider Family Medicine; PCP Family Medicine; Referring Provider Family Medicine; Visit Provider Surgery
DX: R23.4 Changes in skin texture (principal); M86.162 Other acute osteomyelitis, left tibia and fibula
CPT/HCPCS: 99213

== ENCOUNTER → 2024-06-27 09:38 | Outpatient (CLI) | payer OTHER, SELFPAY ==
[2024-06-03 11:55] VITALS: BMI 26.2
== END ==
PROVIDERS: Family Provider Family Medicine; PCP Family Medicine; Referring Provider Family Medicine; Visit Provider Surgery
DX: S81.802D Unspecified open wound, left lower leg, subsequent encounter (principal); R23.4 Changes in skin texture; M86.162 Other acute osteomyelitis, left tibia and fibula
CPT/HCPCS: 99211; 99213

== ENCOUNTER → 2024-07-10 09:34 | Outpatient (CLI) | payer OTHER, SELFPAY | LOC: WC 09:35 | PROVIDERS: Family Provider Family Medicine; PCP Family Medicine; Referring Provider Family Medicine; Visit Provider Surgery | DX: T81.89XD Other complications of procedures, not elsewhere classified, subsequent encounter (principal); S81.802D Unspecified open wound, left lower leg, subsequent encounter; M86.162 Other acute osteomyelitis, left tibia and fibula | CPT/HCPCS: 99211; 99213 ==